=== PATIENT | male | born 1975 | race African-American/Black ===

== ENCOUNTER 2025-05-05 23:41 | Emergency (ER) | payer SELFPAY ==
[~2025-05-05] VITALS: Ht 188 cm; Wt 139.0 kg
[2025-05-05 23:45] VITALS: O2SAT 99
[2025-05-06 00:42] LABS: BASOPHILS % 0.4 % (0.0-2.0); EOSINOPHILS % 0.7 % (0.0-5.0); HEMATOCRIT. 38.8 % (42.0-52.0); HEMOGLOBIN. 12.8 g/dL (14.0-18.0); LYMPHOCYTES % 28.4 % (20.0-50.0); MEAN PLATELET VOLUME 10.1 fl (7.4-10.4); MONOCYTES % 6.9 % (2.0-8.0); NEUTROPHILS % 63.6 % (40.0-76.0); PLATELET 192 x1000/uL (130-400); RED BLOOD CELL COUNT 4.55 mill/uL (4.7-6.1); RED CELL DISTRIBUTION WIDTH 14.7 % (11.6-14.6)
[2025-05-06 00:50] LABS: CREATININE 1.2 mg/dL (0.6-1.3)
[2025-05-06 00:51] LABS: ETHANOL BLOOD < 10 mg/dL (<10); UREA NITROGEN BLOOD 19 mg/dL (9-23)
[2025-05-06 00:52] LABS: TROPONIN I HIGH SENSITIVITY 4 ng/L (3.0-53)
[2025-05-06 00:58] LABS: INR 1.0
[2025-05-06] MEDS: SODIUM CHLORIDE 0.9% 500 ML IV ONE (04:06)
[2025-05-06] MEDS ORDERED: DOCUSATE SODIUM 100MG CAPSULE PO PRN (04:15)
[2025-05-06] MEDS ORDERED: ACETAMINOPHEN 325MG TABLET PO PRN (04:15)
[2025-05-06] MEDS ORDERED: DEXTROSE 50% WATER 50ML SYRINGE IV PRN (04:15)
[2025-05-06] MEDS ORDERED: ONDANSETRON HCL 4MG/2ML INJ IV PRN (04:15)
[2025-05-06] MEDS ORDERED: CLONIDINE 0.1MG TABLET PO PRN (04:15)
[2025-05-06] MEDS ORDERED: GUAIFENESIN 200MG/10ML SUGAR FREE UDC PO PRN (04:15)
[2025-05-06] MEDS ORDERED: IPRATROPIUM/ALBUTEROL 0.5-3(2.5)MG/3ML NEB HHN PRN (04:15)
[2025-05-06] MEDS ORDERED: SODIUM CHLORIDE 0.9% 1,000 ML IV SCH (04:30)
[2025-05-06 05:00] VITALS: BP 155/84; PULSE 91; RESP 16; TEMP 36.7; O2SAT 95
[2025-05-06] MEDS ORDERED: INSULIN LISPRO 100 UNITS/ML SUBCUT SCH (08:20)
[2025-05-06] MEDS ORDERED: PANTOPRAZOLE SODIUM 40 MG/VIAL IV SCH (09:00)
[2025-05-06] MEDS ORDERED: BLOOD SUGAR DIAGNOSTIC STRIP TEST SCH (09:00)
== END 2025-05-06 04:53 | disposition left against medical advice (07) ==
LOC: ER 23:41 → EDBEDREQTM 05-06 03:28 → EDBEDREQDT 05-06 03:28 → EDBEDREQ 05-06 03:28 → ENRESERV 05-06 04:24 → ER 05-06 04:53 → CANBEDREQ 05-06 05:19
DX: R55 Syncope and collapse (principal); E11.9 Type 2 diabetes mellitus without complications; I50.9 Heart failure, unspecified; Z79.899 Other long term (current) drug therapy
CPT/HCPCS: 36415; 71045; 70450; 93005; 99285; 80048; 80320; 83880; 85025; 85610; 85730; 84484; 96360; Z7610; J7040; G0480